=== PATIENT | female | born 1975 | race Caucasian/White ===

== ENCOUNTER 2024-07-01 16:37 | Outpatient (REF) | payer OTHER, SELFPAY | END 2024-07-01 16:38 | disposition home or self-care (01) | LOC: HO.HOSX 16:37 | PROVIDERS: Visit Provider Physician Assistant | DX: Z13.89 Encounter for screening for other disorder (principal) ==

== ENCOUNTER 2024-07-29 15:03 | Outpatient (AMB) | payer OTHER, SELFPAY ==
--- NOTE | 2024-07-29 15:14 | MHC.OFFVIS ---
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 Patient reports her pain has been present for over 6 months. Denies injury. No previous tx. States her left knee is the worse and the pain radiates up the posterior aspect of leg. Her pain is constant and increases with prolong sitting and standing from a sitting position. Finds little to no relief with Tylneol. She uses pillows under her legs to help her sleep at night. 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 She has not had any injury on her knees. She states she has constant pain in her bilateral knees that is worse on her left knee and radiates up to the posterior aspect of her leg. Her pain is aggravated with walking, stair use, prolonged sitting and getting up from sitting. She has not had any treatment in the past. She finds minimal relief with Tylenol. She uses pillows under her leg to help her sleep at night. 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 Review of Systems Const All systems reviewed & are unremarkable except as noted in HPI and below Physical Exam Const General: cooperative, healthy appearing, comfortable, no acute distress, well developed and alert Orientation/consciousness: patient oriented x3 HEENT Head: Yes normal to inspection, Yes normocephalic and Yes atraumatic Eyes General: appearance normal, both eyes and all related structures Resp Effort & Inspection: normal respiratory effort and able to speak in complete sentences Cardio Rate: regular rate Peripheral pulses: Peripheral pulses 2+ throughout GI Palpation (GI): Soft to palpation Skin Lesions: no lesions Rashes: no rashes Neuro General: patient oriented x3 Extrem Other: Bilateral knee: Skin intact, no erythema or joint effusion. Tenderness along the medial and lateral joint line. Full ROM with crepitus. Negative Owen?s. No ligamentous laxity. NVI. Results Reviewed Results Reviewed: Xrays were obtained in the office today and personally reviewed by me show pf oa Assessment & Plan Assessment & Plan (1) Osteoarthritis of patellofemoral joints, bilateral: Code(s): M17.0 - Bilateral primary osteoarthritis of knee Category: Medical Plan We discussed options which include PT, NSAIDs and injections. The patient will defer on the injection today and proceed with PT and NSAIDs. If symptoms persist, she will contact me for an injection, otherwise, PRN. EMG was ordered of bilat upper ext given her c/o numbness and tingling. She is interested in fu in our office once completed for evaluation. Orders: Orders XR knee LT 3V Today M25.562 - Pain in left knee PT Evaluation and Treatment Today M17.0 - Bilateral primary osteoarthritis of knee XR knee RT 3V Today M17.11 - Unilateral primary osteoarthritis, right knee NE nerve conduction velocity Today R20.0 - Anesthesia of skin, R20.2 - Paresthesia of skin NE electromyogram (EMG) Today R20.0 - Anesthesia of skin, R20.2 - Paresthesia of skin Medications: New naproxen 500 mg PO BID 60 tabs 3RF 30 days S93.409A - Sprain of unspecified ligament of unspecified ankle, initial encounter Patient Instructions: Scribed for Urmila Woodward PA-C, by Galen Gonzalez medical insurance biller, on 07/29/2024 at 3:00 PM EST.? I, Urmila Woodward PA-C, have personally reviewed and agree with the information entered by the scribe. Coding Level of Care Code New Pt Level 3 (61992) Complex EM visit Add On G2211 Diagnoses Osteoarthritis of patellofemoral joints, bilateral M17.0
== END 2024-07-29 15:59 | disposition home or self-care (01) ==
LOC: HO.HOS 15:03
PROVIDERS: Visit Provider Physician Assistant
DX: M17.0 Bilateral primary osteoarthritis of knee (principal)
CPT/HCPCS: 99203; G2211

== ENCOUNTER 2024-07-29 15:22 | Outpatient (REF) | payer OTHER, SELFPAY | END 2024-07-29 15:23 | disposition home or self-care (01) | LOC: HO.HOSX 15:22 | PROVIDERS: Visit Provider Physician Assistant | DX: M25.562 Pain in left knee (principal); M17.11 Unilateral primary osteoarthritis, right knee; S93.409A Sprain of unspecified ligament of unspecified ankle, initial encounter | CPT/HCPCS: 73562; 99202 ==

== ENCOUNTER 2024-08-20 14:51 | Outpatient (REF) | payer OTHER, SELFPAY ==
--- NOTE | 2024-08-20 14:53 | EMG_ITS ---
Chief complaint: Diagnosed Carpal Tunnel Syndrome more than 5 years ago. Continued hand pain and numbness Reason for referral: Evaluate for Carpal Tunnel Syndrome Referred by: Urmila WOLFE Procedure done: Bilateral upper extremities NCS/EMG Precautions and/or limitations: None The limb temperature was monitored continuously and remained between 32-36 degrees C during the performance of the NCS. Nerve Conduction Studies Anti Sensory Summary Table ?Stim Site NR Onset (ms) Norm Onset (ms) Peak (ms) Norm Peak (ms) O-P Amp (?V) Norm O-P Amp Site1 Site2 Delta-0 (ms) Dist (cm) Hilario (m/s) Norm Hilario (m/s) Left Median Anti Sensory (2nd Digit) Wrist ? 3.5 4.4 <3.6 27.7 >10 Wrist 2nd Digit 3.5 14.0 40 Right Median Anti Sensory (2nd Digit) Wrist ? 4.6 5.7 <3.6 17.8 >10 Wrist 2nd Digit 4.6 14.0 30 Right Radial Anti Sensory (Thumb) Forearm ? 1.4 2.1 <3.1 30.6 Forearm Thumb 1.4 0.0 Left Ulnar Anti Sensory (5th Digit) Wrist ? 2.3 3.2 <3.7 13.5 >15.0 Wrist 5th Digit 2.3 14.0 61 Right Ulnar Anti Sensory (5th Digit) Wrist ? 2.4 3.2 <3.7 19.4 >15.0 Wrist 5th Digit 2.4 14.0 58 Motor Summary Table ?Stim Site NR Onset (ms) Norm Onset (ms) O-P Amp (mV) Norm O-P Amp iAmp (mV) Amp (1st) (%) Site1 Site2 Delta-0 (ms) Dist (cm) Hilario (m/s) Norm Hilario (m/s) Left Median Motor (Abd Poll Brev) Wrist ? 4.4 <3.9 8.3 >4.5 10.3 100.0 Elbow Wrist 3.6 19.0 53 >45 Elbow ? 8.0 8.0 9.9 96.4 Right Median Motor (Abd Poll Brev) Wrist ? 6.2 <3.9 6.7 >4.5 8.3 100.0 Elbow Wrist 4.0 19.0 48 >45 Elbow ? 10.2 5.6 7.0 83.6 Left Ulnar Motor (Abd Dig Minimi) Wrist ? 2.3 <3.0 7.1 >5 8.6 100.0 B Elbow Wrist 3.4 18.5 54 >45 B Elbow ? 5.7 6.7 8.0 94.4 A Elbow B Elbow 2.1 10.0 48 >45 A Elbow ? 7.8 5.1 6.6 71.8 Right Ulnar Motor (Abd Dig Minimi) Wrist ? 2.9 <3.0 9.5 >5 11.0 100.0 B Elbow Wrist 3.0 16.5 55 >45 B Elbow ? 5.9 9.2 10.9 96.8 A Elbow B Elbow 1.3 10.0 77 >45 A Elbow ? 7.2 9.7 11.5 102.1 EMG ?Side Muscle Nerve Root Ins Act Fibs Psw Amp Dur Poly Recrt Int Pat Comment Right 1stDorInt Ulnar C8-T1 Nml Nml Nml Nml Nml 0 Nml Complete Right FlexCarRad Median C6-7 Nml Nml Nml Nml Nml 0 Nml Complete Right Biceps Musculocut C5-6 Nml Nml Nml Nml Nml 0 Nml Complete Right Triceps Radial C6-7-8 Nml Nml Nml Nml Nml 0 Nml Complete Right Deltoid Axillary C5-6 Nml Nml Nml Nml Nml 0 Nml Complete Left 1stDorInt Ulnar C8-T1 Nml Nml Nml Nml Nml 0 Nml Complete Left FlexCarRad Median C6-7 Nml Nml Nml Nml Nml 0 Nml Complete Left Biceps Musculocut C5-6 Nml Nml Nml Nml Nml 0 Nml Complete Left Triceps Radial C6-7-8 Nml Nml Nml Nml Nml 0 Nml Complete Left Deltoid Axillary C5-6 Nml Nml Nml Nml Nml 0 Nml Complete FINDINGS: Bilateral median motor nerves showed prolonged distal latency, normal amplitude and normal conduction velocity. Bilateral median sensory nerves showed prolonged peak latency. All other nerves tested were within normal. Concentric needle EMG was performed in selected muscles of the upper extremity. Study did not reveal signs of electric abnormalities as shown in the table above. IMPRESSION: 1. This is an abnormal study. 2. There is electrodiagnostic evidence for bilateral moderate-severe median neuropathy at the wrist, consistent with carpal tunnel syndrome. 3. There is no electrodiagnostic evidence for ulnar neuropathy, brachial plexopathy, or cervical radiculopathy. Thank you for your kind referral. Melody Aguiar MD, BRUNA Board Certified, [place] Board of Physical Medicine and Rehabilitation (ABPMR) Board Certified, [place] Board of Electrodiagnostic Medicine (ABEM) CODIN [phone] 2 MTDD
== END 2024-08-20 14:52 | disposition home or self-care (01) ==
LOC: HO.NEURO 14:51
PROVIDERS: Visit Provider Physician Assistant
DX: R20.0 Anesthesia of skin (principal); R20.2 Paresthesia of skin
CPT/HCPCS: 95886; 95911

== ENCOUNTER → 2024-08-20 14:53 | Outpatient (BNV) | payer OTHER, SELFPAY | PROVIDERS: Visit Provider Physical Medicine & Rehabilitation | DX: G56.03 Carpal tunnel syndrome, bilateral upper limbs (principal) | CPT/HCPCS: 95886; 95911 ==

== ENCOUNTER 2024-09-07 11:20 | Outpatient (AMB) | payer OTHER, SELFPAY ==
[2024-09-07 11:25] VITALS: BMI 37.9
--- NOTE | 2024-09-07 11:25 | A.OFFVIS_ITS ---
Vital Signs 09/07/24 11:25 Height 5 ft 2 in Weight 207 lb BMI 37.9 Handedness Right Intake Visit Reasons: New prob-B/L hand EMG f/u-discuss surgery? Intake Note: Sudha 49 yr old right hand dominant female who works at ? presents today for a new problem visit for bilateral hand CTS. States her right is worse. Symptoms started a few years ago and has worsened over the past year. Reports she is having difficulty with sleeping, lifting, gripping, and grasping. She expresses numbness, tingling, and tightness in all her bilateral digits. She has tried hand braces in the past with very little relief. EMG done on 08/20/24. Patient is interested in surgical intervention. Patient has Hx of DM. Allergies No Known Allergies Allergy (Verified 09/07/24 11:25) [facility] HPI New prob-B/L hand EMG f/u-discuss surgery?: Details: Patient is a 49-year-old female who presents for bilateral hand EMG review and discussion of potential carpal tunnel releases. The patient states that her numbness and tingling has been ongoing for years, and is now almost constant, daily, and much worse at night. Patient states she would like to start with any operative intervention of the right side 1st, as this is her dominant hand that she finds it persistently more bothersome. No other acute complaints or concerns at this time. 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 Good APB muscle firing and good finger cross. Vascular: Capillary refill brisk. ROM: Patient can make a fist and extend all their digits. Skin: No lacerations or abrasions noted. General: No ecchymosis. No erythema or evidence of infection. Results Reviewed Results Reviewed: IMPRESSION: 1. This is an abnormal study. 2. There is electrodiagnostic evidence for bilateral moderate-severe median neuropathy at the wrist, consistent with carpal tunnel syndrome. 3. There is no electrodiagnostic evidence for ulnar neuropathy, brachial plexopathy, or cervical radiculopathy. Thank you for your kind referral. Melody Aguiar MD, BRUNA Assessment & Plan Assessment & Plan (1) Bilateral carpal tunnel syndrome: Code(s): G56.03 - Carpal tunnel syndrome, bilateral upper limbs Category: Medical Plan 1. Bilateral carpal tunnel syndrome Symptoms almost constant, daily, worse at night At this time, patient is informed that due to her last A1c being 9.8, we can not perform surgery on her at this time, as there would be concerns with wound healing and potential infection due to this high A1c Patient is informed that she should get her A1c redrawn and if it was below 8, she should call us for another appointment to get signed up for surgery Patient was amenable to this plan and states understanding of this Meantime, patient was provided with bilateral wrist splints to be worn at night for help with nighttime symptoms Patient was amenable to this plan Patient will follow-up after her next A1c if it is below 8.0 for discussion of surgery, sooner with any acute concerns Coding Level of Care Code Est Pt Level 3 (39686) Diagnoses Bilateral carpal tunnel syndrome G56.03
== END 2024-09-07 11:47 | disposition home or self-care (01) ==
DX: G56.03 Carpal tunnel syndrome, bilateral upper limbs (principal)
CPT/HCPCS: 99213

== ENCOUNTER → 2024-09-07 11:20 | Outpatient (BNVA) | payer OTHER, SELFPAY | DX: G56.03 Carpal tunnel syndrome, bilateral upper limbs (principal) | CPT/HCPCS: 99212 ==

== ENCOUNTER 2024-10-20 17:11 | Outpatient (RCR) | payer MEDICAID, SELFPAY ==
--- NOTE | 2024-10-13 14:37 | MHC.PT.EP ---
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 SHE RESIDES W HER SON IN A 2ND FLOOR APT. OBJECTIVELY, THE Pt HAS LIMITED ROM IN HER HIPS, DECR STRENGTH IN HER LUMBOPELVIC REGION, DECR POSTURE AWARENESS, AND ALTERED GAIT MECH. SHE NOTED SHE IS SCHED IN OCT 2024 FOR LEs US VASCULAR CALCIFICATION WAS NOTED ON HER KNEE XR. SHE IS MOTIVATED FOR PT TO ADDRESS THE ABOVE, AND IF HER KNEE SXS DECR, SHE WOULD LIKE TO RTW. Frequency and Duration: The patient will be seen 2 x WK x 4 WKS Short Term Goals: IMPROVE JENNIFER HIP FLEXIB DECR KNEE PAIN TO 2-3/10 IMPROVE PATELLAR MOB,JENNIFER DEV HEP Custodial Goals: INDEP HEP Pt RESUME REG ADLs AND INCREASE ACTIVITY NAIDA EVIDENT W IMPROVED LEFI, AT EVAL Pt DEMON EFFICIENT BODY MECH W 3:3 SIMUL ADLs Treatment Plan: Modalities to reduce pain, spasms and effusion. Manual therapy to restore motion and function. Therapeutic exercise to improve strength and flexibility. Neuromuscular re-education for posture and balance. Therapeutic activities to return to functional activities of daily living. Electronically signed by: MILDRED SLOAN,PT Please sign and return to therapist. Thank you for your referral.
--- NOTE | 2024-10-27 07:24 | MHC.PT.DC ---
[facility] [place] Office [place] Office [place] Office [address] Aarti Melchor [address] [phone] F: [phone] F: [phone] F: [phone] F: [phone] Physical Therapy Discharge Report Diagnosis: OA OF BILATERAL PATELLOFEMORAL JOINTS Date of Surgery: Date of Evaluation: 10/13/24 Date of Discharge: 10/27/24 Treatments to Date: 1 Cancellations to Date: 6 No Shows to Date: 1 Discharge Status: Patient Elected to Stop Discharge Summary: MINI ATTENDED HER PT EVAL ,A PLAN WAS ESTABLISHED TO ADDRESS HER JENNIFER PFPS- SHE CONTACTED OUR DEPT ON 10/26/24 AND DISCHARGED HERSELF, NOTING SHE WAS PURSUING PT CLOSER TO HER HOME. SHE IS DISCHARGED FROM [facility] AT THIS TIME. A REASSESSMANE WAS NOT PERF SHE ONLY ATTENDED HER PT EVAL. Electronically signed by: Christal Becker,PT Please sign and return to therapist. Thank you for your referral.
== END 2024-10-27 07:24 | disposition home or self-care (01) ==
LOC: HO.PT 17:11
PROVIDERS: PCP Nurse Practitioner Family; Visit Provider Physician Assistant
DX: M17.0 Bilateral primary osteoarthritis of knee (principal)
CPT/HCPCS: 97110; 97162